=== PATIENT | male | born 1960 | race Asian ===

== ENCOUNTER 2022-05-30 17:27 | Emergency (ER) | payer OTHER ==
[~2022-05-30] VITALS: Ht 167.6 cm; Wt 81.8 kg
[2022-05-30] MEDS ORDERED: METF-1211 PO (17:35)
[2022-05-30 19:46] LABS: BASOPHILS % (AUTO) 0.5 % (0.0-2.0); HEMATOCRIT 38.7 % (41-53); HEMOGLOBIN 11.8 g/dL (13.5-17.5); LYMPHOCYTES # (AUTO) 1.4 K/uL (1.0-4.8); LYMPHOCYTES % (AUTO) 11.9 % (22.0-44.0); MEAN CORPUSCULAR HEMOGLOBIN 19.6 pg (26.0-34.0); MEAN CORPUSCULAR HGB CONC 30.6 G/dL (31.0-37.0); MEAN CORPUSCULAR VOLUME 64 fL (80-100); MONOCYTES # (AUTO) 1.1 K/uL (0.1-1.0); MONOCYTES % (AUTO) 9.9 % (2.0-9.0); NEUTROPHILS # (AUTO) 8.9 K/uL (1.8-7.7); NEUTROPHILS % (AUTO) 76.7 % (40.0-70.0); PLATELET COUNT (AUTO) 261 K/uL (150-450); RED BLOOD CELL COUNT(AUTO) 6.06 MIL/uL (4.50-5.90)
[2022-05-30 19:49] LABS: CALCIUM, TOTAL 8.8 mg/dL (8.8-10.5); CREATININE 2.22 mg/dL (0.60-1.30); POTASSIUM 3.6 mmol/L (3.5-5.1)
[2022-05-30 19:53] LABS: PROTHROMBIN TIME 10.8 SEC (9.4-11.6)
[2022-05-30 19:56] LABS: ALBUMIN 3.4 g/dL (3.4-5.0); BILIRUBIN,TOTAL 0.4 mg/dL (0.1-1.0); TOTAL PROTEIN, SERUM 8.2 g/dL (6.4-8.2)
[2022-05-30] MEDS ORDERED: PROPARACAINE HCL 0.5% 15 ML OPHTHALMIC SOLUTION OS ONE (20:30)
[2022-05-30 20:53] VITALS: BP 116/74
== END 2022-05-30 21:00 | disposition left against medical advice (07) ==
LOC: EMS 17:28
DX: H57.12 Ocular pain, left eye (principal); H54.62 Unqualified visual loss, left eye, normal vision right eye; E11.22 Type 2 diabetes mellitus with diabetic chronic kidney disease; I12.9 Hypertensive chronic kidney disease with stage 1 through stage 4 chronic kidney disease, or unspecified chronic kidney disease; N18.9 Chronic kidney disease, unspecified; E78.00 Pure hypercholesterolemia, unspecified
CPT/HCPCS: 80053; 82962; 85025; 85610; 85730; 99283

== ENCOUNTER 2022-06-10 09:39 | Emergency (ER) | payer OTHER ==
[~2022-06-10] VITALS: Ht 165.1 cm; Wt 75.0 kg
[~2022-06-10 09:39] MED LIST: METF-1211 PO
[2022-06-10] MEDS ORDERED: ATOR40TA71 PO (09:54)
[2022-06-10] MEDS ORDERED: ASPI-1450 PO (09:54)
[2022-06-10] MEDS ORDERED: AMLO5TAB66 PO (09:54)
[2022-06-10] MEDS ORDERED: FURO40TA5 PO (09:54)
[2022-06-10] MEDS ORDERED: TELM80TA10 PO (09:54)
[2022-06-10] MEDS ORDERED: DULA3PEN SQ (09:54)
[2022-06-10] MEDS ORDERED: SPIR-37 PO (09:54)
[2022-06-10] MEDS ORDERED: BACITRACIN 0.9 GM PACKET OINTMENT TP ONE (10:00)
[2022-06-10] MEDS ORDERED: PERTUSS(ACELL),DIPH,TET VAC/PF 0.5 ML SYRINGE IM. ONE (10:00)
[2022-06-10] MEDS ORDERED: LIDOCAINE 1%/EPI 1:200,000/PF 30 ML VIAL SQ ONE (10:00)
[2022-06-10 11:00] VITALS: BP 130/77
== END 2022-06-10 11:10 | disposition home or self-care (01) ==
LOC: EMS 09:40
DX: S71.111A Laceration without foreign body, right thigh, initial encounter (principal); E11.9 Type 2 diabetes mellitus without complications; E78.00 Pure hypercholesterolemia, unspecified; I10 Essential (primary) hypertension; W18.30XA Fall on same level, unspecified, initial encounter; Y93.89 Activity, other specified; Y92.89 Other specified places as the place of occurrence of the external cause; Y99.8 Other external cause status
CPT/HCPCS: 99283; 82962; 90715; 90471; 12004; J3490

== ENCOUNTER 2022-06-17 10:46 | Emergency (ER) | payer OTHER ==
[~2022-06-17] VITALS: Ht 165.1 cm; Wt 86.4 kg
[~2022-06-17 10:46] MED LIST changes: +AMLO5TAB66 PO; +ASPI-1450 PO; +ATOR40TA71 PO; +DULA3PEN SQ; +FURO40TA5 PO; +SPIR-37 PO; +TELM80TA10 PO
[2022-06-17 13:47] VITALS: BP 137/84
== END 2022-06-17 14:20 | disposition home or self-care (01) ==
LOC: EMS 10:49
DX: Z48.02 Encounter for removal of sutures (principal); E11.9 Type 2 diabetes mellitus without complications; E78.00 Pure hypercholesterolemia, unspecified; I10 Essential (primary) hypertension
CPT/HCPCS: 99281; Z7502